=== PATIENT | male | born 1940 | race African-American/Black ===

== ENCOUNTER 2021-03-21 23:58 | Inpatient (IN) | payer MEDICARE ==
[~2021-03-21] VITALS: Ht 172.7 cm; Wt 66.2 kg
[2021-03-21 20:00] VITALS: BP 128/60
[2021-03-22] VITALS: BP_SYST 100; BP_SYST 128; BP_DIAS 54; BP_DIAS 60
[2021-03-22] MEDS ORDERED: TRAMADOL 50MG TABLET PO PRN (01:00)
[2021-03-22] MEDS ORDERED: CLONIDINE 0.1MG TABLET PO PRN (01:00)
[2021-03-22] MEDS ORDERED: ONDANSETRON HCL 4MG/2ML INJ IV PRN (01:00)
[2021-03-22] MEDS ORDERED: BISACODYL 10MG SUPP PR PRN (01:00)
[2021-03-22 08:00] VITALS: BP 148/50
[2021-03-22 08:02] LABS: CLARITY URINE CLEAR (CLEAR); COLOR URINE YELLOW (YELLOW); KETONES URINE NEGATIVE (NEGATIVE); LEUKOCYTE ESTERASE URINE 1+ (NEGATIVE); NITRITE URINE NEGATIVE (NEGATIVE); OCCULT BLOOD URINE 2+ (NEGATIVE); PH URINE 6.5 (4.5-8.0); PROTEIN URINE NEGATIVE (NEGATIVE); SPECIFIC GRAVITY URINE 1.016 (1.005-1.030); UROBILINOGEN URINE 0.2 E.U./dL (0.2-1.0)
[2021-03-22] MEDS: DOCUSATE SODIUM 100MG CAPSULE PO SCH ×2 (08:15→16:26)
[2021-03-22] MEDS: ASPIRIN 81MG TABLET PO SCH (08:15)
[2021-03-22] MEDS: TAMSULOSIN HCL 0.4MG SR CAPSULE PO SCH (08:15)
[2021-03-22] MEDS: AMLODIPINE 10MG TABLET PO SCH (08:15)
[2021-03-22] MEDS: LOSARTAN POTASSIUM 50 MG TABLET PO SCH (08:15)
[2021-03-22] MEDS ORDERED: ENOXAPARIN 30MG/0.3ML SYR SUBCUT SCH (17:00)
[2021-03-22 20:00] VITALS: BP 157/58
[2021-03-22] MEDS: POLYETHYLENE GLYCOL 3350 (17GM) 1 DOSE PACK PO SCH (21:00)
[2021-03-23 08:30] VITALS: BP 159/76
[2021-03-23] MEDS: TAMSULOSIN HCL 0.4MG SR CAPSULE PO SCH (08:41)
[2021-03-23] MEDS: DOCUSATE SODIUM 100MG CAPSULE PO SCH ×2 (08:42→17:00)
[2021-03-23] MEDS: ASPIRIN 81MG TABLET PO SCH (08:42)
[2021-03-23] MEDS: LOSARTAN POTASSIUM 50 MG TABLET PO SCH (08:42)
[2021-03-23] MEDS: CLOPIDOGREL 75MG TABLET PO SCH (08:42)
[2021-03-23] MEDS: AMLODIPINE 10MG TABLET PO SCH (08:42)
[2021-03-23] MEDS: ENOXAPARIN 80MG/0.8ML SYR SUBCUT SCH (08:43)
[2021-03-23 20:00] VITALS: BP 136/56
[2021-03-23] MEDS: POLYETHYLENE GLYCOL 3350 (17GM) 1 DOSE PACK PO SCH (21:00)
[2021-03-24 08:00] VITALS: BP 147/79
[2021-03-24] MEDS: TAMSULOSIN HCL 0.4MG SR CAPSULE PO SCH (09:00)
[2021-03-24] MEDS: ASPIRIN 81MG TABLET PO SCH (09:00)
[2021-03-24] MEDS: DOCUSATE SODIUM 100MG CAPSULE PO SCH ×2 (09:00→17:00)
[2021-03-24] MEDS: ENOXAPARIN 80MG/0.8ML SYR SUBCUT SCH (09:00)
[2021-03-24] MEDS: LOSARTAN POTASSIUM 50 MG TABLET PO SCH (12:35)
[2021-03-24] MEDS: CLOPIDOGREL 75MG TABLET PO SCH (12:36)
[2021-03-24] MEDS: AMLODIPINE 10MG TABLET PO SCH (12:37)
[2021-03-24 20:00] VITALS: BP 120/64
[2021-03-24] MEDS: POLYETHYLENE GLYCOL 3350 (17GM) 1 DOSE PACK PO SCH (21:00)
[2021-03-25 08:28] VITALS: BP 143/72
[2021-03-25] MEDS: CLOPIDOGREL 75MG TABLET PO SCH (08:54)
[2021-03-25] MEDS: DOCUSATE SODIUM 100MG CAPSULE PO SCH ×2 (08:54→17:00)
[2021-03-25] MEDS: ASPIRIN 81MG TABLET PO SCH (08:54)
[2021-03-25] MEDS: AMLODIPINE 10MG TABLET PO SCH (08:54)
[2021-03-25] MEDS: LOSARTAN POTASSIUM 50 MG TABLET PO SCH (08:55)
[2021-03-25] MEDS: TAMSULOSIN HCL 0.4MG SR CAPSULE PO SCH (08:55)
[2021-03-25] MEDS: ENOXAPARIN 80MG/0.8ML SYR SUBCUT SCH (09:00)
[2021-03-25 20:00] VITALS: BP 131/64
[2021-03-25] MEDS: POLYETHYLENE GLYCOL 3350 (17GM) 1 DOSE PACK PO SCH (21:00)
[2021-03-26 08:00] VITALS: BP 124/61
[2021-03-26] MEDS: CLOPIDOGREL 75MG TABLET PO SCH (09:00)
[2021-03-26] MEDS: AMLODIPINE 10MG TABLET PO SCH (09:00)
[2021-03-26] MEDS: LOSARTAN POTASSIUM 50 MG TABLET PO SCH (09:00)
[2021-03-26] MEDS: TAMSULOSIN HCL 0.4MG SR CAPSULE PO SCH (09:00)
[2021-03-26] MEDS: ENOXAPARIN 80MG/0.8ML SYR SUBCUT SCH (09:00)
[2021-03-26] MEDS: DOCUSATE SODIUM 100MG CAPSULE PO SCH ×2 (09:00→16:30)
[2021-03-26] MEDS: ASPIRIN 81MG TABLET PO SCH (09:00)
[2021-03-26] MEDS: LACTULOSE 20G/30ML UDC PO SCH ×3 (13:24→21:00)
[2021-03-26 20:00] VITALS: BP 110/62
[2021-03-26] MEDS: POLYETHYLENE GLYCOL 3350 (17GM) 1 DOSE PACK PO SCH (21:00)
[2021-03-27 07:41] VITALS: BP 158/74
[2021-03-27] MEDS: DOCUSATE SODIUM 100MG CAPSULE PO SCH ×2 (09:00→17:00)
[2021-03-27] MEDS: LOSARTAN POTASSIUM 50 MG TABLET PO SCH (09:00)
[2021-03-27] MEDS: AMLODIPINE 10MG TABLET PO SCH (09:00)
[2021-03-27] MEDS: ASPIRIN 81MG TABLET PO SCH (09:00)
[2021-03-27] MEDS: CLOPIDOGREL 75MG TABLET PO SCH (09:00)
[2021-03-27] MEDS: ENOXAPARIN 80MG/0.8ML SYR SUBCUT SCH (09:00)
[2021-03-27] MEDS: TAMSULOSIN HCL 0.4MG SR CAPSULE PO SCH (09:27)
[2021-03-27 20:00] VITALS: BP 126/68
[2021-03-27] MEDS: POLYETHYLENE GLYCOL 3350 (17GM) 1 DOSE PACK PO SCH (21:00)
[2021-03-28 07:25] VITALS: BP 121/76
[2021-03-28] MEDS: CLOPIDOGREL 75MG TABLET PO SCH (08:17)
[2021-03-28] MEDS: TAMSULOSIN HCL 0.4MG SR CAPSULE PO SCH (08:52)
[2021-03-28] MEDS: AMLODIPINE 10MG TABLET PO SCH (09:00)
[2021-03-28] MEDS: ASPIRIN 81MG TABLET PO SCH (09:00)
[2021-03-28] MEDS: DOCUSATE SODIUM 100MG CAPSULE PO SCH ×2 (09:00→16:28)
[2021-03-28] MEDS: ENOXAPARIN 80MG/0.8ML SYR SUBCUT SCH (09:00)
[2021-03-28] MEDS: LOSARTAN POTASSIUM 50 MG TABLET PO SCH (09:00)
[2021-03-28 20:00] VITALS: BP 149/83
[2021-03-28] MEDS: POLYETHYLENE GLYCOL 3350 (17GM) 1 DOSE PACK PO SCH (21:00)
[2021-03-28] MEDS: FINASTERIDE 5MG TABLET PO SCH (21:36)
[2021-03-28] MEDS: ACETAMINOPHEN 325MG TABLET PO PRN (21:47)
[2021-03-29 08:00] VITALS: BP 132/55
[2021-03-29] MEDS: DOCUSATE SODIUM 100MG CAPSULE PO SCH ×2 (09:00→17:00)
[2021-03-29] MEDS: ASPIRIN 81MG TABLET PO SCH (09:26)
[2021-03-29] MEDS: AMLODIPINE 10MG TABLET PO SCH (09:27)
[2021-03-29] MEDS: LOSARTAN POTASSIUM 50 MG TABLET PO SCH (09:27)
[2021-03-29] MEDS: TAMSULOSIN HCL 0.4MG SR CAPSULE PO SCH (09:27)
[2021-03-29] MEDS: FINASTERIDE 5MG TABLET PO SCH (09:28)
[2021-03-29] MEDS: CLOPIDOGREL 75MG TABLET PO SCH (09:28)
[2021-03-29] MEDS: ENOXAPARIN 80MG/0.8ML SYR SUBCUT SCH ×2 (09:36→22:43)
[2021-03-29 13:39] VITALS: BP 132/55
[2021-03-29 15:02] LABS: HEMATOCRIT 37.3 % (42.0-52.0); HEMOGLOBIN 12.5 g/dL (14.0-18.0); MEAN CORPUSCULAR HEMOGLOBIN 28.4 pg (28.0-32.0); MEAN CORPUSCULAR VOLUME 84.9 fL (80.0-94.0); PLATELET 195 x1000/uL (130-400); RED BLOOD CELL COUNT 4.39 mill/uL (4.7-6.1); RED CELL DISTRIBUTION WIDTH 14.2 % (11.6-14.6)
[2021-03-29 15:11] LABS: CHLORIDE 109 mEq/L (98-107)
[2021-03-29 20:00] VITALS: BP 111/56
[2021-03-29] MEDS: POLYETHYLENE GLYCOL 3350 (17GM) 1 DOSE PACK PO SCH (20:34)
[2021-03-30 08:23] VITALS: BP 131/68
[2021-03-30] MEDS: ENOXAPARIN 80MG/0.8ML SYR SUBCUT SCH ×2 (09:00→23:00)
[2021-03-30] MEDS: ASPIRIN 81MG TABLET PO SCH (11:02)
[2021-03-30] MEDS: DOCUSATE SODIUM 100MG CAPSULE PO SCH ×2 (11:02→17:35)
[2021-03-30] MEDS: LOSARTAN POTASSIUM 50 MG TABLET PO SCH (11:04)
[2021-03-30] MEDS: CLOPIDOGREL 75MG TABLET PO SCH (11:05)
[2021-03-30] MEDS: AMLODIPINE 10MG TABLET PO SCH (11:05)
[2021-03-30] MEDS: TAMSULOSIN HCL 0.4MG SR CAPSULE PO SCH (11:05)
[2021-03-30] MEDS: ACETAMINOPHEN 325MG TABLET PO PRN (11:06)
[2021-03-30] MEDS: FINASTERIDE 5MG TABLET PO SCH (11:06)
[2021-03-30 20:00] VITALS: BP 130/65
[2021-03-30] MEDS: POLYETHYLENE GLYCOL 3350 (17GM) 1 DOSE PACK PO SCH (21:00)
[2021-03-31 08:00] VITALS: BP 136/68
[2021-03-31] MEDS: CLOPIDOGREL 75MG TABLET PO SCH (10:44)
[2021-03-31] MEDS: AMLODIPINE 10MG TABLET PO SCH (10:44)
[2021-03-31] MEDS: LOSARTAN POTASSIUM 50 MG TABLET PO SCH (12:22)
[2021-03-31] MEDS: TAMSULOSIN HCL 0.4MG SR CAPSULE PO SCH (12:23)
[2021-03-31] MEDS: ASPIRIN 81MG TABLET PO SCH (13:42)
[2021-03-31] MEDS: FINASTERIDE 5MG TABLET PO SCH (13:42)
[2021-03-31] MEDS: DOCUSATE SODIUM 100MG CAPSULE PO SCH ×2 (17:35→17:39)
[2021-03-31] MEDS: ACETAMINOPHEN 325MG TABLET PO PRN (17:38)
[2021-03-31 20:00] VITALS: BP 117/53
[2021-03-31] MEDS: ENOXAPARIN 80MG/0.8ML SYR SUBCUT SCH ×2 (20:34→20:46)
[2021-03-31] MEDS: POLYETHYLENE GLYCOL 3350 (17GM) 1 DOSE PACK PO SCH (20:45)
[2021-04-01 08:30] VITALS: BP 150/75
[2021-04-01] MEDS: LOSARTAN POTASSIUM 50 MG TABLET PO SCH (09:00)
[2021-04-01] MEDS: DOCUSATE SODIUM 100MG CAPSULE PO SCH ×2 (09:00→16:55)
[2021-04-01] MEDS: TAMSULOSIN HCL 0.4MG SR CAPSULE PO SCH (09:00)
[2021-04-01] MEDS: ASPIRIN 81MG TABLET PO SCH (09:00)
[2021-04-01] MEDS: ENOXAPARIN 80MG/0.8ML SYR SUBCUT SCH ×2 (09:00→21:00)
[2021-04-01] MEDS: FINASTERIDE 5MG TABLET PO SCH (09:00)
[2021-04-01] MEDS: AMLODIPINE 10MG TABLET PO SCH (09:13)
[2021-04-01] MEDS: CLOPIDOGREL 75MG TABLET PO SCH (09:13)
[2021-04-01] MEDS ORDERED: POLY17PO3 PO (09:47)
[2021-04-01] MEDS ORDERED: CLOP75TA15 PO (09:47)
[2021-04-01] MEDS ORDERED: TAMS-11 PO (09:47)
[2021-04-01] MEDS ORDERED: APIX5TAB PO (09:47)
[2021-04-01] MEDS ORDERED: FINA5TAB11 PO (09:47)
[2021-04-01] MEDS ORDERED: AMLO10TA80 PO (09:47)
[2021-04-01] MEDS ORDERED: DOCU-150 PO (09:47)
[2021-04-01] MEDS ORDERED: ASPI-1160 PO (09:47)
[2021-04-01] MEDS ORDERED: LOSA50TA3 PO (09:47)
[2021-04-01] MEDS: ACETAMINOPHEN 325MG TABLET PO PRN (16:56)
[2021-04-01 20:00] VITALS: BP 111/56
[2021-04-01] MEDS: POLYETHYLENE GLYCOL 3350 (17GM) 1 DOSE PACK PO SCH (21:00)
[2021-04-02 08:00] VITALS: BP 129/57
[2021-04-02] MEDS: TAMSULOSIN HCL 0.4MG SR CAPSULE PO SCH (08:08)
[2021-04-02] MEDS: ASPIRIN 81MG TABLET PO SCH (08:08)
[2021-04-02] MEDS: LOSARTAN POTASSIUM 50 MG TABLET PO SCH (08:08)
[2021-04-02] MEDS: DOCUSATE SODIUM 100MG CAPSULE PO SCH (08:08)
[2021-04-02] MEDS: AMLODIPINE 10MG TABLET PO SCH (08:09)
[2021-04-02] MEDS: CLOPIDOGREL 75MG TABLET PO SCH (08:09)
[2021-04-02] MEDS: FINASTERIDE 5MG TABLET PO SCH (08:09)
[2021-04-02] MEDS: ENOXAPARIN 80MG/0.8ML SYR SUBCUT SCH (08:10)
[2021-04-02 10:46] VITALS: BP 129/57
== END 2021-04-02 12:25 | DRG 71 ==
PROVIDERS: ADMIT Physical Medicine & Rehabilitation Spinal Cord Injury Medicine; ATTEND Internal Medicine
DX: G93.41 Metabolic encephalopathy (principal); N17.9 Acute kidney failure, unspecified; I69.351 Hemiplegia and hemiparesis following cerebral infarction affecting right dominant side; R47.01 Aphasia; M51.06 Intervertebral disc disorders with myelopathy, lumbar region; M50.00 Cervical disc disorder with myelopathy, unspecified cervical region; N13.8 Other obstructive and reflux uropathy; N18.9 Chronic kidney disease, unspecified; I12.9 Hypertensive chronic kidney disease with stage 1 through stage 4 chronic kidney disease, or unspecified chronic kidney disease; R33.8 Other retention of urine; N40.1 Benign prostatic hyperplasia with lower urinary tract symptoms; K59.00 Constipation, unspecified; R47.1 Dysarthria and anarthria; I16.0 Hypertensive urgency; D69.6 Thrombocytopenia, unspecified; R79.89 Other specified abnormal findings of blood chemistry; R53.81 Other malaise; F32.9 Major depressive disorder, single episode, unspecified; F41.9 Anxiety disorder, unspecified; M48.02 Spinal stenosis, cervical region; M48.061 Spinal stenosis, lumbar region without neurogenic claudication; R26.89 Other abnormalities of gait and mobility
CPT/HCPCS: 36415; 80048; 81003; 85027; 92523; 92610; 93970; 97110; 97112; 97116; 97162; 97166; 97530; 97535; J1650; U0003; U0005; A4315

== ENCOUNTER 2021-04-04 16:56 | Emergency (ER) | payer MEDICARE ==
[~2021-04-04] VITALS: Ht 177.8 cm; Wt 70.0 kg
[~2021-04-04 16:56] MED LIST: AMLO10TA80 PO; APIX5TAB PO; ASPI-1160 PO; CLOP75TA15 PO; DOCU-150 PO; FINA5TAB11 PO; LOSA50TA3 PO; POLY17PO3 PO; TAMS-11 PO
[2021-04-04 19:08] LABS: BASOPHILS % 0.7 % (0.0-2.0); EOSINOPHILS % 3.6 % (0.0-5.0); HEMATOCRIT. 39.2 % (42.0-52.0); LYMPHOCYTES % 24.3 % (20.0-50.0); MEAN CORPUSCULAR HEMOGLOBIN 28.3 pg (28.0-32.0); MEAN CORPUSCULAR VOLUME 85.4 fL (80.0-94.0); MEAN PLATELET VOLUME 10.1 fl (7.4-10.4); MONOCYTES % 5.8 % (2.0-8.0); NEUTROPHILS % 65.6 % (40.0-76.0); PLATELET 190 x1000/uL (130-400); RED BLOOD CELL COUNT 4.59 mill/uL (4.7-6.1); RED CELL DISTRIBUTION WIDTH 14.2 % (11.6-14.6)
[2021-04-04 19:10] LABS: CHLORIDE 110 mEq/L (98-107)
[2021-04-04 19:21] LABS: CLARITY URINE CLOUDY (CLEAR); COLOR URINE YELLOW (YELLOW); KETONES URINE NEGATIVE (NEGATIVE); LEUKOCYTE ESTERASE URINE 1+ (NEGATIVE); NITRITE URINE NEGATIVE (NEGATIVE); OCCULT BLOOD URINE TRACE (NEGATIVE); PH URINE 5.5 (4.5-8.0); PROTEIN URINE 1+ (NEGATIVE); UROBILINOGEN URINE 0.2 E.U./dL (0.2-1.0)
[2021-04-04] MEDS ORDERED: CEPH500C2 MT (20:28)
[2021-04-05 12:42] VITALS: BP 144/64
== END 2021-04-05 12:45 ==
LOC: ER 16:56 → CANBEDREQ 04-05 10:45 → ER 04-05 12:45
DX: R45.1 Restlessness and agitation (principal); N39.0 Urinary tract infection, site not specified; I69.351 Hemiplegia and hemiparesis following cerebral infarction affecting right dominant side; I12.9 Hypertensive chronic kidney disease with stage 1 through stage 4 chronic kidney disease, or unspecified chronic kidney disease; N18.9 Chronic kidney disease, unspecified; Z79.82 Long term (current) use of aspirin
CPT/HCPCS: 36415; 80053; 81003; 85025; 99285

== ENCOUNTER 2022-06-02 10:14 | Emergency (ER) | payer BC, MEDICARE ==
[~2022-06-02] VITALS: Ht 177.8 cm; Wt 68.0 kg
[~2022-06-02 10:14] MED LIST changes: +CEPH500C2 MT
[2022-06-02 10:15] VITALS: BP 134/62
[2022-06-02] MEDS ORDERED: TRAM-529 MT (12:16)
== END 2022-06-02 13:43 | disposition home or self-care (01) ==
LOC: ER 10:52
DX: M17.0 Bilateral primary osteoarthritis of knee (principal); M19.031 Primary osteoarthritis, right wrist; M19.032 Primary osteoarthritis, left wrist; G89.29 Other chronic pain; I10 Essential (primary) hypertension; Z79.899 Other long term (current) drug therapy
CPT/HCPCS: 93005; 99283